=== PATIENT | male | born 1975 | race Caucasian/White ===

== ENCOUNTER 2022-03-15 10:15 | Outpatient (RCR) | payer OTHER, SELFPAY | END 2022-11-11 23:59 | disposition home or self-care (01) | PROVIDERS: Visit Provider Radiology Radiation Oncology | DX: I89.0 Lymphedema, not elsewhere classified (principal); Z51.89 Encounter for other specified aftercare | CPT/HCPCS: 92610 ==

== ENCOUNTER 2022-12-23 15:00 | Outpatient (CLI) | payer OTHER, SELFPAY ==
--- NOTE | 2022-12-23 15:30 | CRLHL7_ITS ---
For Patients: As a result of the Century Cures Act, medical imaging exams and procedure reports are released immediately into your electronic medical record. You may view this report before your referring provider. If you have questions, please contact your health care provider. INDICATION: Squamous cell carcinoma of the right tonsil. Tonsillectomy, and right modified radical neck dissection January 2022. Radiation therapy completed March 2022. Follow-up. Restaging. TECHNIQUE: 12.59 mCi 18 FDG (18 qempxp-kp-pzd-glucose) injected intravenously. Imaging performed from the upper forehead through the proximal thighs [address] performed for anatomic correlation and attenuation correction. Pre scan glucose: 94 mg/dL. COMPARISON: PET/CT scan July 22, 2022. FINDINGS: Physiologic activity is identified in the brain, salivary glands, tongue, paralaryngeal soft tissues, myocardium, GI, and tract. Activity in the left anti cubital fossa/proximal left upper extremity is related to the radiotracer injection site. The included head, face, and neck are within normal limits. No abnormal activity within the tonsillectomy bed. No abnormal activity within cervical lymph nodes or the thyroid gland. The chest is within normal limits. No abnormal activity in either lung, thoracic lymph node groups, or along either chest wall. There is a small focus of activity along the articulation of the right 1st rib and with the sternum. This is musculoskeletal in nature and not a lymph node or a metastasis. The abdomen, pelvis, both inguinal regions, soft tissues of the included thighs, and the included skeleton are within normal limits. CT Findings: Postsurgical change from a tonsillectomy. Postsurgical change right neck. Clear lungs. No hydronephrosis or splenomegaly. IMPRESSION: Negative PET/CT scan. No evidence for recurrent or metastatic disease. Dictated by Sourav Yadav MD @ 12/24/2022 12:47:09 PM (Electronically Signed)
== END 2022-12-23 15:01 | disposition home or self-care (01) ==
LOC: RAD 15:03
PROVIDERS: Visit Provider Otolaryngology
DX: C09.9 Malignant neoplasm of tonsil, unspecified (principal)
CPT/HCPCS: 78815; A9552

== ENCOUNTER 2023-06-07 15:31 | Outpatient (REF) | payer OTHER, SELFPAY | END 2023-06-07 15:32 | disposition home or self-care (01) | LOC: NPINS 15:31 | PROVIDERS: Visit Provider Radiology Radiation Oncology | DX: C09.9 Malignant neoplasm of tonsil, unspecified (principal) | CPT/HCPCS: 84443 ==

== ENCOUNTER 2024-02-09 14:26 | Outpatient (REF) | payer OTHER, SELFPAY ==
[2024-02-09 19:32] LABS: Free T4 Free Thyroxine* 0.93 ng/dL (0.70-1.85)
== END 2024-02-09 14:27 | disposition home or self-care (01) ==
LOC: NPINS 14:26
PROVIDERS: Visit Provider Physician Assistant
DX: C09.9 Malignant neoplasm of tonsil, unspecified (principal)
CPT/HCPCS: 84439; 84443

== ENCOUNTER 2024-08-09 15:01 | Outpatient (CLI) | payer OTHER, SELFPAY ==
[2024-08-09 18:14] LABS: Free T4 Free Thyroxine* 0.78 ng/dL (0.70-1.85)
[2024-08-11 10:48] LABS: Thyroid Peroxidase (TPO) Ab 0.5 IU/mL (0.0-9.0)
== END 2024-08-09 15:02 | disposition home or self-care (01) ==
LOC: LAB 15:03
PROVIDERS: Visit Provider Physician Assistant
DX: C09.9 Malignant neoplasm of tonsil, unspecified (principal); Z13.29 Encounter for screening for other suspected endocrine disorder; R94.6 Abnormal results of thyroid function studies
CPT/HCPCS: 36415; 84439; 84443; 86376